=== PATIENT | male | born 1990 | race Hispanic/Latino ===

== ENCOUNTER 2020-10-12 08:19 | Emergency (ER) | payer SELFPAY ==
[~2020-10-12] VITALS: Ht 165.1 cm; Wt 116.6 kg
[2020-10-12 08:22] VITALS: BP 136/87
[2020-10-12 10:46] VITALS: BP 137/62
[2020-10-12] MEDS ORDERED: TETRACAINE HCL 0.5% 4 ML OPHTH SOLN ONE (11:00)
[2020-10-12] MEDS ORDERED: FLUORESCEIN SODIUM 1 STRIP STRIP ONE (11:01)
[2020-10-12] MEDS ORDERED: TIMOLOL MALEATE 0.25% 5 ML BOTTLE OD SCH (12:15)
[2020-10-12] MEDS ORDERED: KETOROLAC 60 MG VIAL (30MG/ML) IM SCH (12:15)
[2020-10-12] MEDS ORDERED: MORPHINE 4 MG SYG (4MG/1ML) IM ONE (12:15)
[2020-10-12] MEDS ORDERED: ACET1TAB25 PO (12:52)
[2020-10-12] MEDS ORDERED: KETO.5OS OD (12:52)
[2020-10-12 12:56] VITALS: BP_SYST 128; BP_DIAS 70; BP_DIAS 76
== END 2020-10-12 12:57 | disposition home or self-care (01) ==
LOC: EDH 08:41
DX: H57.11 Ocular pain, right eye (principal); H57.89 Other specified disorders of eye and adnexa; Z88.2 Allergy status to sulfonamides; Z79.1 Long term (current) use of non-steroidal anti-inflammatories (NSAID)
CPT/HCPCS: 96372 ×2; 99284; J1885; J2270